=== PATIENT | male | born 1980 | race Hispanic/Latino ===

== ENCOUNTER 2020-07-12 16:14 | Emergency (ER) | payer BC, SELFPAY ==
--- NOTE | 2020-07-12 16:30 | ED.GENADULT ---
HPI - General Adult General Chief complaint: Unspecified Stated complaint: runny nose, sore throat Time Seen by Provider: 07/12/20 16:18 Source: patient Mode of arrival: ambulatory Limitations: no limitations History of Present Illness HPI narrative: Patient is a 40-year-old male who woke at 5 AM with sore throat has had congestion and runny nose as well denies fever other URI symptoms or complaints or sick contacts presents from urgent care to be evaluated has not taken anything for his symptoms but notes he is feeling better Related Data Allergies Allergy/AdvReac Type Severity Reaction Status Date / Time No Known Allergies Allergy Verified 07/12/20 17:03 Review of Systems Review of Systems: All systems reviewed & are unremarkable except as noted in HPI and below PMFSH Social History Social History (Updated 07/12/20 @ 16:31 by Michele Martinez PA-C) Smoking status: Never smoker Gender identity (if verbalized by the patient): Male Sexual Orientation (if Verbalized by the Patient): Straight or Heterosexual Exam Narrative: Exam Narrative: GENERAL: Well-appearing, well-nourished, and in no acute distress. HEAD: Normocephalic, atraumatic. EYES: PERRLA and EOMI. ENT: Nares clear, no rhinorrhea or epistaxis. Mucous membranes moist. Oropharynx oropharynx with hypertrophy no exudate uvula midline no trismus or drooling NECK: Supple. No adenopathy or masses. CHEST: Clear to auscultation. No respiratory distress. No wheezes rales or rhonchi HEART: Regular rate and rhythm. No murmur heard. EXTREMITIES: Normal range of motion. No edema. SKIN: Warm, dry, no rash. NEURO: No focal deficits. Alert and oriented x3. Cranial nerves II through XII grossly intact PSYCH: Normal mood and affect. Course Course Emergency Course: Patient in the room aware of case findings treatment plan diagnosis agreeing to self quarantine and contact the on-call primary care to obtain his COVID-19 results negative strep results patient notes that he will have to contact primary care in order to receive the results Vital Signs Vital signs: Vital Signs Temperature 97.5 F L 07/12/20 16:57 Pulse Rate 110 H 07/12/20 16:57 Respiratory Rate 18 07/12/20 16:57 Blood Pressure 156/95 H 07/12/20 16:57 Pulse Oximetry 99 07/12/20 16:57 Temperature 97.5 F L 07/12/20 16:57 Pulse Rate 110 H 07/12/20 16:57 Respiratory Rate 18 07/12/20 16:57 Blood Pressure 156/95 H 07/12/20 16:57 Pulse Oximetry 99 07/12/20 16:57 Medical Decision Making MDM Narrative Medical decision making narrative: Patient will be checked for strep throat and Covid. There are no focal signs of space occupying lesions that are compromising to the ariway. The floor of the mouth is soft with no signs of Ludwigs Angina. Patient is without trismus or drooling and able to swallow secreations. Patient agrees to follow with the on-call primary care to obtain his COVID-19 results and is aware that this is the only person that can get the results for him provided with reasons to return Vital Signs Vital Signs: Vital Signs Temperature 97.5 F L 07/12/20 16:57 Pulse Rate 110 H 07/12/20 16:57 Respiratory Rate 18 07/12/20 16:57 Blood Pressure 156/95 H 07/12/20 16:57 Pulse Oximetry 99 07/12/20 16:57 Temperature 97.5 F L 07/12/20 16:57 Pulse Rate 110 H 07/12/20 16:57 Respiratory Rate 18 07/12/20 16:57 Blood Pressure 156/95 H 07/12/20 16:57 Pulse Oximetry 99 07/12/20 16:57 Lab Data Labs: Lab Results 07/12/20 Range/Units 16:48 SARS-CoV-2 RNA (RT-PCR) Pending Strep Screen Presumptive Negative *(Reference Range: Negative)* Discharge Plan Discharge Clinical Impression: Acute upper respiratory infection Patient Disposition: Home, Self-Care Condition: Stable Instructions: Antibiotic Form Additional Instructions: Follow up with your primary care provi
[2020-07-12 16:57] VITALS: BP 156/95; PULSE 110; RESP 18; TEMP 36.4; O2SAT 99
[2020-07-13 01:02] LABS: SARS-CoV-2 RNA PCR Negative
== END 2020-07-12 17:26 | disposition home or self-care (01) ==
LOC: ANHED 16:53
PROVIDERS: Emergency Medicine Emergency Medical Services; Emergency Provider Emergency Medicine; PCP Emergency Medicine
DX: J06.9 Acute upper respiratory infection, unspecified (principal); Z20.828 Contact with and (suspected) exposure to other viral communicable diseases
CPT/HCPCS: 87081; 87635; 87880; 99283; C9803; U0003

== ENCOUNTER 2021-03-16 11:41 | Emergency (ER) | payer BC, SELFPAY ==
[2021-03-16 11:44] VITALS: BP 137/93; PULSE 87; RESP 18; TEMP 36.3; O2SAT 98
--- NOTE | 2021-03-16 12:02 | ED.GENADULT ---
HPI - General Adult General Chief complaint: Upper Respiratory Infection Stated complaint: sinus infection Time Seen by Provider: 03/16/21 11:51 History of Present Illness HPI narrative: Patient presents with concern for sinusitis. Patient reports sinus pressure and congestion for the past 3 to 4 days. Reports it feels similar to his prior sinusitis this. He has been using his Flonase and Sudafed with some relief. Patient feels like he can manage symptoms at home however his work required him to get a Covid test to ensure he is not contagious. Denies any shortness of breath, chest pain, dizziness, fevers, change in taste or smell Related Data Allergies Allergy/AdvReac Type Severity Reaction Status Date / Time No Known Allergies Allergy Verified 07/12/20 17:03 Review of Systems Review of Systems: CONSTITUTIONAL: Denies fever, chills, or sweats. EYES: Denies visual changes, redness, or discharge. ENT: Denies rhinorrhea, or otalgia. CARDIOVASCULAR: Denies chest pain, palpitations, or edema. RESPIRATORY: Denies cough or dyspnea. GASTROINTESTINAL: Denies abdominal pain, nausea, vomiting, or diarrhea. GENITOURINARY: Denies dysuria or hematuria. SKIN: Denies rash or itching. MUSCULOSKELETAL: Denies back pain, joint pain, or myalgia. NEUROLOGIC: Denies headache, numbness, dizziness, or weakness. PSYCHIATRIC: Denies anxiety or depression. All systems reviewed & are unremarkable except as noted in HPI and below PMFSH Social History Social History (Updated 07/12/20 @ 16:31 by Michele Martinez PA-C) Smoking status: Never smoker Gender identity (if verbalized by the patient): Male Exam Narrative: GENERAL: Well-appearing, well-nourished, and in no acute distress. HEAD: Normocephalic, atraumatic. EYES: PERRLA and EOMI. ENT: Nares clear, no rhinorrhea or epistaxis. Mucous membranes moist. Minimal erythema in the posterior pharynx no exudates. Minimal tenderness to percussion of the sinuses NECK: Supple. No masses. No JVD CHEST: Clear to auscultation. No respiratory distress. No wheezes rales or rhonchi HEART: Regular rate and rhythm. No murmur heard. Normal peripheral pulses. EXTREMITIES: Normal range of motion. No edema. SKIN: Warm, dry, no rash. NEURO: No focal deficits. Alert and oriented x3. PSYCH: Normal mood and affect. Course Vital Signs Vital signs: Vital Signs Temperature 36.3 C L 03/16/21 11:44 Pulse Rate 87 03/16/21 11:44 Respiratory Rate 18 03/16/21 11:44 Blood Pressure 137/93 H 03/16/21 11:44 Pulse Oximetry 98 03/16/21 11:44 Temperature 36.3 C L 03/16/21 11:44 Pulse Rate 87 03/16/21 11:44 Respiratory Rate 18 03/16/21 11:44 Blood Pressure 137/93 H 03/16/21 11:44 Pulse Oximetry 99 03/16/21 12:33 Medical Decision Making MDM Narrative Medical decision making narrative: H&P as above, vss, pt looks clinically well, exam reassuring, Covid test pending,additional labs/img considered, symptomatic relief available as needed, on reevaluation pt continues to looks clinically well. Suspect viral sinusitis, dns pneumonia consider urosepsis, strep. plan to tx/monitor as op w/ pcm f/u findings/plan discussed with pt, pt agree/comfortable with plan, return precautions given Patient counseled on Covid quarantine precautions Vital Signs Vital Signs: Vital Signs Temperature 36.3 C L 03/16/21 11:44 Pulse Rate 87 03/16/21 11:44 Respiratory Rate 18 03/16/21 11:44 Blood Pressure 137/93 H 03/16/21 11:44 Pulse Oximetry 98 03/16/21 11:44 Temperature 36.3 C L 03/16/21 11:44 Pulse Rate 87 03/16/21 11:44 Respiratory Rate 18 03/16/21 11:44 Blood Pressure 137/93 H 03/16/21 11:44 Pulse Oximetry 99 03/16/21 12:33 Lab Data Labs: Lab Results 03/16/21 Range/Units 12:24 SARS-CoV-2 RNA (RT-PCR) Pending Discharge Plan Discharge Clinical Impression: Sinusitis Patient Disposition: Home, Self-Care Condition: Stable Instructions: Antibioti
[2021-03-16 12:33] VITALS: O2SAT 99
[2021-03-17 18:46] LABS: SARS-CoV-2 RNA PCR Negative
== END 2021-03-16 12:34 | disposition home or self-care (01) ==
PROVIDERS: Emergency Provider Emergency Medicine; PCP Emergency Medicine
DX: Z20.822 Contact with and (suspected) exposure to COVID-19 (principal); J32.9 Chronic sinusitis, unspecified
CPT/HCPCS: 99283; C9803; U0003; U0005

== ENCOUNTER 2022-04-01 11:23 | Emergency (ER) | payer BC, SELFPAY ==
--- NOTE | 2022-04-01 11:28 | ED.SKABFB ---
HPI - Skin/Abscess/Foreign Bdy General Chief complaint: Skin/Abscess/Foreign Body Stated complaint: poisen norma Time Seen by Provider: 04/01/22 11:27 Source: patient Mode of arrival: ambulatory Limitations: no limitations History of Present Illness HPI narrative: Mr. Saldana is a 42-year-old male patient presenting to the clinic today for possible poison norma. He reports that he caught possible poison norma when he was weed eating. He has this rash to the back of his neck his arms and also in his groin. Related Data Allergies Allergy/AdvReac Type Severity Reaction Status Date / Time No Known Allergies Allergy Verified 04/01/22 11:27 Review of Systems Review of Systems: Pertinent positives per HPI. Patient denies any fever, chills, headache, visual changes, dizziness, cough, runny nose, sore throat, shortness of breath, chest pain, palpitations, nausea, vomiting, diarrhea, constipation, abdominal pain, or any urinary issues. PMFSH Social History Social History Smoking status: Never smoker Gender identity (if verbalized by the patient): Male Sexual Orientation (if Verbalized by the Patient): Straight or Heterosexual Comments At the time of my signature, I reviewed and agree with the nursing past medical, surgical, social, and family history. There is no relevant family history pertinent to the patient complaint. Exam Narrative: General: Well-developed, well nourished, in no apparent distress Head: Normocephalic, atraumatic. Cardio: Regular rate and rhythm, s1 and s2 normal, no murmur appreciated. Resp: Clear to auscultation bilaterally, no rhonchi, rales, wheezing or rubs. Integumentary: [place], warm, and dry, intact without lesion, red raised blistered itchy rash posterior left neck, bilateral forearms, and in the left groin Course Course Emergency Course: Portions of this record may have been created with voice recognition software. Level of Care: Express Care Visit Vital Signs Vital signs: Vital signs reviewed MDM - Skin/Abscess/Foreign Bdy MDM Narrative Medical decision making narrative: At the time of visit patient is resting comfortably on the exam table. I suspect the patient has contact dermatitis due to plant. We will give him a dose of Decadron 10 mg IM in the clinic due to the rash being in his groin. Prednisone and triamcinolone cream also ordered. Patient is to start prednisone in the morning. Supportive measures were discussed with the patient he voiced understanding of discharge instructions. Differential Diagnosis Differential diagnosis: Likely viral exanthem, urticaria, eczema and contact dermatitis Discharge Plan Discharge Clinical Impression: Allergic contact dermatitis due to plant Patient Disposition: Home, Self-Care Condition: Stable Instructions: Antibiotic Form, Poison Norma (ED) Additional Instructions: Decadron 10 mg IM given in the clinic today Take prednisone( start tomorrow 04/02/22) and apply triamcinolone cream as directed May take Benadryl 25 to 50 mg every 6 hours as needed for itching Avoid hot showers Avoid scratching May apply calamine lotion to the affected area Follow-up with your PCP in 3 to 5 days if symptoms persist or sooner if they worsen Prescriptions: New prednisone 20 mg tablet 40 mg PO DAILY 5 Days Qty: 10 0RF triamcinolone acetonide 0.1 % cream 1 applic topical BID 7 Days Qty: 30 0RF Follow-up/Referrals: UNKNOWN,DOCTOR [Primary Care Provider] - Time of Disposition: 11:40 Quality NIHSS Nursing Documentation ED NIHSS nursing documentation: reviewed/agree
[2022-04-01 11:33] VITALS: BP 118/83; PULSE 67; RESP 16; TEMP 35.6; O2SAT 100
== END 2022-04-01 11:49 | disposition home or self-care (01) ==
PROVIDERS: Emergency Provider Nurse Practitioner Family
DX: L23.7 Allergic contact dermatitis due to plants, except food (principal)
CPT/HCPCS: 96372; 99213; G0463; J1100